=== PATIENT | female | born 1975 | race African-American/Black ===

== ENCOUNTER 2023-02-18 19:29 | Emergency (ER) | payer MEDICAID, SELFPAY ==
--- NOTE | ~2023-02-18 | CT_ITS ---
EXAMINATION: CT abdomen pelvis w con DATE: 02/18/2023 22:26 INDICATION: L perianal abscess?, LLQ pain TECHNIQUE: Computed tomography (CT) of the abdomen and pelvis was performed with 100 mL Omnipaque-350 intravenous contrast. Automated exposure control and iterative reconstruction technique were employe d. The dose-length product was 931.04 mGy-cm. COMPARISON: None. FINDINGS: Lower thorax: Unremarkable Liver: Normal. Biliary/Gallbladder: Partially contracted. No bile duct dilation. Pancreas: No mass or duct dilation. Spleen: Normal. Adrenals:No mass. Kidneys: Bilateral hypodensities, too small to characterize but most likely represent cysts. No mass, stone, or hydronephrosis. GI tract: Distal esophageal and GE junction calcifications may represent postsurgical change or calci fied nodes. Mild distal esophageal and gastric wall edema. No small or large bowel dilation. Normal a ppendix. Mesentery/Peritoneum: No ascites, mass, or free air. Retroperitoneum: No mass. Pelvis: Mild bladder wall thickening in a partially distended bladder, the remaining organs are withi n normal limits. Soft Tissues: 2.4 x 3.2 x 3.7 cm rim-enhancing fluid collection in the subcutaneous fat to the left o f the gluteal fold. Small fat-containing umbilical hernia. Bones: No acute osseous finding. IMPRESSION: Mild esophagitis/gastritis. Bladder wall thickening may be secondary to cystitis or an inadequate dis tention. 3.7 cm subcutaneous peroneal abscess to the left of the gluteal fold. Reviewed, dictated and finalized at location K. IMPRESSION: Mild esophagitis/gastritis. Bladder wall thickening may be secondary to cystiti s or an inadequate distention. 3.7 cm subcutaneous peroneal abscess to the left of the gluteal fold.
[2023-02-18 19:40] VITALS: BP 121/90; PULSE 128; RESP 20; TEMP 36.9; O2SAT 100
--- NOTE | 2023-02-18 20:55 | ED.SKABFB ---
HPI - Skin/Abscess/Foreign Bdy General Chief complaint: Skin/Abscess/Foreign Body Stated complaint: wound Time Seen by Provider: 02/18/23 19:56 Source: patient Mode of arrival: ambulatory Limitations: no limitations History of Present Illness HPI narrative: Patient is a 47-year-old female who presents to the ED with report of a boil to her left buttocks. Patient reports she first noticed the boil on her L inner buttocks a few days ago. She reports having increased discomfort with sitting. She states she has had a boil before but not in the same region. She also reports having some pain in her LLQ/inguinal region, but denies nausea, vomiting, fevers, rectal bleeding, melena, pain with BM, drainage. Related Data Allergies Allergy/AdvReac Type Severity Reaction Status Date / Time No Known Allergies Allergy Verified 02/18/23 22:36 Review of Systems Review of Systems: CONSTITUTIONAL: Denies fever, chills, or sweats. GASTROINTESTINAL: See HPI. GENITOURINARY: Denies dysuria or hematuria. SKIN: See HPI. MUSCULOSKELETAL: Denies back pain, joint pain, or myalgia. All systems reviewed & are unremarkable except as noted in HPI and below PMFSH Past Medical History Medical History (Updated 02/19/23 @ 00:03 by Ericka Truong PA-C) No pertinent past medical history Surgical History Surgical History (Updated 02/18/23 @ 21:06 by Ericka Truong PA-C) No pertinent past surgical history Social History Social History (Updated 02/18/23 @ 21:06 by Ericka Truong PA-C) Smoking status: Never smoker Exam Narrative: GENERAL: Well appearing, obese, non-toxic, in no acute distress. HEAD: Normocephalic, atraumatic. NECK: Supple. No adenopathy, no masses. RESPIRATORY: Airway patent, respirations nonlabored. Clear to auscultation bilaterally, no rales, rhonchi, wheezing. CARDIOVASCULAR: Regular rate and rhythm without murmurs, rubs, or gallops. Radial pulses 2+ and equal bilaterally. ABDOMINAL: Soft, mild tenderness in left lower quadrant, left groin region, nondistended, no hepatosplenomegaly. Normoactive BS. RECTAL: No external hemorrhoids noted. Area of induration/erythema to the left mid/upper buttock region, left of medial gluteal fold, with central area of fluctuance, tenderness to palpation. No active drainage. MUSCULOSKELETAL: Moves all extremities. Strength/ROM intact without gross deformities. SKIN: Warm, dry, normal color. No rashes. NEURO: A&O X3. Speech clear. Cranial nerves II-XII grossly intact. Steady gait. No ataxic movements. PSYCHIATRIC: Appropriate mood and affect. Normal interaction. Course Vital Signs Vital signs: Vital Signs Temperature 98.4 F 02/18/23 19:40 Pulse Rate 128 H 02/18/23 19:40 Respiratory Rate 20 02/18/23 19:40 Blood Pressure 121/90 02/18/23 19:40 Pulse Oximetry 100 02/18/23 19:40 Oxygen Delivery Room Air 02/18/23 19:40 Temperature 98.4 F 02/18/23 19:40 Pulse Rate 80 02/19/23 00:23 Respiratory Rate 18 02/19/23 00:23 Blood Pressure 132/78 02/19/23 00:23 Pulse Oximetry 99 02/19/23 00:23 Oxygen Delivery Room Air 02/18/23 19:40 Procedures Abscess I/D leif-rectal: Date of Incision: 02/19/23 Time of Incision: 00:10 Side (if applicable): left Sedation/analgesia: none Local Anesthetic: lidocaine 1% Amount of anesthesia used (mL): 5 Technique: incised with #11 blade and probed loculations Amount of fluid expressed (mL): 10 Irrigation: Yes Packing used?: iodoform I&D Results: Pus and Blood Complications: other (none) MDM - Skin/Abscess/Foreign Bdy MDM Narrative Medical decision making narrative: Patient presented to ED with abscess to left buttock. Vitals stable upon arrival, tachycardia resolved by the time of my evaluation. CBC with leukocytosis of 11.2. Mild anemia. No records to compare to. Made patient aware of this. CMP with potassium 3.3, repla
[2023-02-18 21:24] LABS: Basophils Percent Auto 0.3 % (0.2-1.2); Eosinophils Absolute Auto 0.1 K/mm3 (0-0.3); Eosinophils Percent Auto 1.2 % (0-4.4); Hematocrit 31.9 % (37.0-47.0); Hemoglobin 9.8 g/dL (12.0-15.0); Immature Granulocyte Absolute 0.04 K/mm3 (0.00-0.031); Immature Granulocyte Percent A 0.4 % (0-0.5); Lymphocytes Absolute Auto 2.14 K/mm3 (0.9-3.2); Lymphocytes Percent Auto 19.1 % (18.3-44.2); Mean Corpuscular HGB Conc 30.7 g/dl (32-36); Mean Corpuscular Hemoglobin 24.1 pg (26-34); Mean Corpuscular Volume 78.4 fl (80-100); Mean Platelet Volume 10.2 fl (7.4-10.4); Monocytes Absolute Auto 0.8 K/mm3 (0.1-0.6); Monocytes Percent Auto 7.2 % (2.6-8.5); Neutrophils Percent Auto 71.8 % (45.5-73.1); Platelet Count Result 270 k/mm3 (150-375); Red Blood Count 4.07 M/mm3 (4.2-5.4); Red Cell Distribution Width 17.1 % (11.5-14.5); White Blood Count 11.2 K/mm3 (4.5-10.0)
[2023-02-18 21:35] LABS: Alanine Aminotransferase 18 U/L (6-35); Alkaline Phosphatase 71 U/L (38-126); Anion Gap 6 mmol/L (8-16); Aspartate Amino Transferase 28 U/L (14-36); Bilirubin,Total 0.4 mg/dL (0.2-1.3); Blood Urea Nitrogen 7 mg/dL (7-17); Calcium 8.5 mg/dL (8.4-10.2); Carbon Dioxide 28 mmol/L (22-30); Chloride 105 mmol/L (98-107); Estimated CRCL calculation 82 ml/min; Estimated Glomerular Filt Rate > 60; Glucose 89 mg/dL (65-110); Potassium 3.3 mmol/L (3.4-5.0); Sodium 139 mmol/L (137-145)
[2023-02-19] MEDS: ONDANSETRON INJ 4 MG/2 ML VIAL IV PUSH (00:10)
[2023-02-19] MEDS: MORPHINE SULFATE (*CRX) 4 MG/ML INJ IV PUSH (00:10)
[2023-02-19] MEDS: POTASSIUM CHLORIDE 20 MEQ TABLET 40 MEQ PO (00:11)
[2023-02-19] MEDS: CIPROFLOXACIN 500 MG TAB PO (00:11)
[2023-02-19] MEDS: metroNIDAZOLE 250 MG TABLET 500 MG PO (00:11)
[2023-02-19 00:23] VITALS: BP 132/78; PULSE 80; RESP 18; O2SAT 99
== END 2023-02-19 00:24 | disposition home or self-care (01) ==
PROVIDERS: Emergency Provider Physician Assistant
DX: L02.31 Cutaneous abscess of buttock (principal); L03.317 Cellulitis of buttock
CPT/HCPCS: 10061; 36415; 46040; 74177; 80053; 85025; 87070; 87205; 96374; 96375; 99284; A9270; J2270; J2405; Q9967

== ENCOUNTER 2023-02-22 08:18 | Emergency (ER) | payer MEDICAID, SELFPAY ==
--- NOTE | ~2023-02-22 | XR_ITS ---
EXAMINATION: XR hip LT 2V w AP pelvis INDICATION: Chronic left hip pain TECHNIQUE: AP view the pelvis and two views of the left hip are obtained. COMPARISON: None available FINDINGS: Bone alignment is normal. There is no fracture. There is increased sclerosis and trabecular thickening of the left acetabulum extending partially into the iliac wing. There is mild osteoarthri tis of the left hip. IMPRESSION: 1. Mild osteoarthritis of the left hip and findings suggestive of Paget's disease of the left acetabu lum and iliac wing. No acute osseous abnormality. Reviewed, dictated and finalized at location A. IMPRESSION: 1. Mild osteoarthritis of the left hip and findings suggestive of Paget's disea se of the left acetabulum and iliac wing. No acute osseous abnormality.
[2023-02-22 08:24] VITALS: BP 115/88; PULSE 91; RESP 20; TEMP 36.9; O2SAT 99
--- NOTE | 2023-02-22 10:46 | ED.LOWEXIN ---
HPI - Extremity Injury (Lower) General Chief Complaint: Extremity Injury, Lower Stated Complaint: Left Leg pain Time Seen by Provider: 02/22/23 08:26 History of Present Illness HPI Narrative: Patient is a 47-year-old female who presents ER with left hip pain. Ongoing over the last 2 days. Reports has had this over the last year but has been more intense over the last 2 days. Anterior aspect when she is standing or going downstairs. No recent trauma. It is on the same leg that she has had an infection of her buttock however she reports that the infection is improving and not spreading and she is not concerned about that aspect. No numbness or tingling to the leg. No additional concerns. No improvement with [place]. Related Data Allergies Allergy/AdvReac Type Severity Reaction Status Date / Time No Known Allergies Allergy Verified 02/22/23 08:28 Review of Systems Constitutional: Constitutional: Denies chills and Denies fever(s) Musculoskeletal: Musculoskeletal: Denies myalgias, Reports arthralgias and Denies joint swelling Neurologic: Denies focal weakness and Denies numbness PMFSH Past Medical History Medical History (Updated 02/22/23 @ 10:47 by Mick Borges MD) No pertinent past medical history Surgical History Surgical History (Updated 02/18/23 @ 21:06 by Ericka Truong PA-C) No pertinent past surgical history Social History Social History (Updated 02/18/23 @ 21:06 by Ericka Truong PA-C) Smoking status: Never smoker Exam Narrative: GENERAL: Well-appearing, well-nourished, and in no acute distress. HEAD: Normocephalic, atraumatic. ENT: Mucous membranes moist. CHEST: Clear to auscultation. No respiratory distress. HEART: Regular rate and rhythm. Normal peripheral pulses. EXTREMITIES: Normal range of motion but does have pain with internal rotation of the left hip and with some forward flexion. Pain seems to be located over the hip flexors on that side.. No edema. SKIN: Warm, dry, no rash. NEURO: Alert and oriented x3. PSYCH: Normal mood and affect. Course Course Emergency Course: Patient educated about imaging findings. Discussed treatment plan. Patient verbalized understanding. Discharge home. Vital Signs Vital signs: Vital Signs Temperature 98.4 F 02/22/23 08:24 Pulse Rate 91 02/22/23 08:24 Respiratory Rate 20 02/22/23 08:24 Blood Pressure 115/88 02/22/23 08:24 Pulse Oximetry 99 02/22/23 08:24 Oxygen Delivery Room Air 02/22/23 08:24 Temperature 98.4 F 02/22/23 08:24 Pulse Rate 91 02/22/23 08:24 Respiratory Rate 16 02/22/23 10:53 Blood Pressure 115/88 02/22/23 08:24 Pulse Oximetry 99 02/22/23 08:24 Oxygen Delivery Room Air 02/22/23 08:24 MDM - Extremity Injury (Lower) Imaging Data Radiologist's impression: ITS Impressions Hip/Pelvis X-Ray 02/22/23 09:30 IMPRESSION: 1. 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 No acute osseous abnormality. Discharge Plan Discharge Clinical Impression: Arthritis of hip, Paget disease of bone Patient Disposition: Home, Self-Care Condition: Stable Instructions: Arthritis (ED) Additional Instructions: Your x-ray showed arthritis of your left hip and Paget's disease of the pelvic bones. Follow-up with your primary care doctor to further discuss these findings and potential treatments. Recommend you take ibuprofen or Tylenol as needed for your discomfort. He also may have some discomfort of one of your hip flexing muscles given the location of your discomfort. This is treated the same way and also with some rest. Prescriptions: No Action hydrocodone-acetaminophen 5-325 mg tablet 1 tablet PO Q6H PRN (Reason: pain) Qty: 15 0RF metronidazole 500 mg tablet 500 mg PO Q8H 7 Days Qty: 21 0RF ciprofloxacin HCl 500 mg tablet 500 mg PO Q12H 7 Days Qty: 14 0RF Fo
[2023-02-22 10:53] VITALS: RESP 16
== END 2023-02-22 10:54 | disposition home or self-care (01) ==
PROVIDERS: Emergency Provider Emergency Medicine
DX: M16.12 Unilateral primary osteoarthritis, left hip (principal); M88.88 Osteitis deformans of other bones
CPT/HCPCS: 73502; 99283